=== PATIENT | male | born 2000 | race Two or more races ===

== ENCOUNTER 2024-10-14 01:30 | Emergency (ER) | payer OTHER ==
[~2024-10-14] VITALS: Ht 170.2 cm; Wt 76.0 kg
[2024-10-14 02:02] VITALS: TEMP 99.3
[2024-10-14] MEDS: LIDOCAINE 1%/EPI 1:200,000/PF 10 ML VIAL SQ ONE (03:31)
[2024-10-14] MEDS: PERTUSS(ACELL),DIPH,TET/PF 0.5 ML SYRINGE [ADULT] IM. ONE (04:02)
[2024-10-14 04:05] VITALS: BP 120/75; PULSE 80; RESP 16; O2SAT 100
== END 2024-10-14 04:08 | disposition home or self-care (01) ==
LOC: EMS 01:32
DX: S61.211A Laceration without foreign body of left index finger without damage to nail, initial encounter (principal); J45.909 Unspecified asthma, uncomplicated; W26.0XXA Contact with knife, initial encounter; Y93.89 Activity, other specified; Y92.89 Other specified places as the place of occurrence of the external cause; Y99.0 Civilian activity done for income or pay
CPT/HCPCS: 99283; 90715; 90471; 12001; J3490

== ENCOUNTER 2025-01-16 17:56 | Emergency (ER) | payer OTHER ==
[~2025-01-16] VITALS: Ht 170.2 cm; Wt 68.2 kg
[2025-01-16] MEDS ORDERED: ALBU18HF12 IH (17:59)
[2025-01-16] MEDS: IBUPROFEN 600 MG TABLET PO ONE (19:15)
[2025-01-16] MEDS: LIDOCAINE 5% TRANSDERMAL PATCH TD ONE (19:16)
[2025-01-16 19:35] VITALS: BP 127/75; TEMP 97.405232
[2025-01-16] MEDS ORDERED: LIDO-57 TP (20:43)
[2025-01-16] MEDS ORDERED: ACET-3385 PO (20:43)
[2025-01-16] MEDS ORDERED: IBUP-1492 PO (20:43)
[2025-01-16 21:50] VITALS: PULSE 70; RESP 18; O2SAT 98
== END 2025-01-16 20:45 | disposition still patient (30) ==
LOC: EMS 18:09
DX: S20.212A Contusion of left front wall of thorax, initial encounter (principal); J45.909 Unspecified asthma, uncomplicated; M25.552 Pain in left hip; F12.90 Cannabis use, unspecified, uncomplicated; Z79.899 Other long term (current) drug therapy; W10.9XXA Fall (on) (from) unspecified stairs and steps, initial encounter; Y93.89 Activity, other specified; Y92.89 Other specified places as the place of occurrence of the external cause; Y99.8 Other external cause status
CPT/HCPCS: 99284; 71101; 73503; G0238

== ENCOUNTER 2025-03-16 22:07 | Inpatient (IN) | payer MEDICAID, OTHER ==
[~2025-03-16] VITALS: Ht 162.6 cm; Wt 62.7 kg
[~2025-03-16 22:07] MED LIST: ACET-3385 PO; ALBU18HF12 IH; IBUP-1492 PO; LIDO-57 TP
[2025-03-16] MEDS: SODIUM CHLORIDE 0.9% 1,000 ML IV ONE ×2 (22:18→23:30)
[2025-03-16] MEDS: LevETIRAcetam 1,000 MG in DEXTROSE 5%-WATER 100 ML IV ONE (22:46)
[2025-03-16 22:47] LABS: PLATELET COUNT (AUTO) 243 K/uL (150-450); RED BLOOD CELL COUNT(AUTO) 5.33 MIL/uL (4.50-5.90); RED CELL DISTRIBUTION WIDTH 13.6 % (11.5-14.5); WHITE BLOOD COUNT (AUTO) 10.1 K/uL (4.5-11.0)
[2025-03-16 22:54] LABS: CALCIUM, TOTAL 8.8 mg/dL (8.8-10.5); CREATININE 1.12 mg/dL (0.60-1.30); GLOMERULAR FILTR. RATE CALC > 60 mL/min (>60); GLUCOSE,RANDOM 139 mg/dL (70-110); SODIUM SERUM 132 mmol/L (136-145); UREA NITROGEN, BLOOD 7 mg/dL (7-18)
[2025-03-16 22:56] LABS: ALCOHOL, BLOOD (SERUM) < 3 mg/dL (0-10)
[2025-03-16] MEDS ORDERED: MAGNESIUM HYDROXIDE SUSPENSION 30 ML UDCUP PO PRN (23:00)
[2025-03-16] MEDS ORDERED: LORazepam 2 MG/ML VIAL IVP PRN (23:00)
[2025-03-16] MEDS ORDERED: ACETAMINOPHEN 325 MG TABLET PO PRN (23:00)
[2025-03-16] MEDS ORDERED: ONDANSETRON HCL 4 MG/2 ML VIAL IVP PRN (23:00)
[2025-03-16 23:01] LABS: TROPONIN I-HIGH SENSITIVITY 9 ng/L (<76)
[2025-03-16 23:02] LABS: LACTIC ACID 6.5 mmol/L (0.4-2.0)
[2025-03-16 23:19] LABS: BAND NEUTROPHILS % (MANUAL) 3 % (0-5); EOSINOPHILS % (MANUAL) 3 % (1-6); LYMPHOCYTES % (MANUAL) 27 % (22-44); MONOCYTES % (MANUAL) 5 % (2-9); SEGMENTED NEUTROPHILS % 62 % (40-70)
[2025-03-17 04:16] LABS: APPEARANCE,URINE CLEAR (CLEAR); GLUCOSE, URINE (UA) NEGATIVE (NEGATIVE); LEUKOCYTE ESTERASE ,URINE TRACE (NEGATIVE); NITRATE,URINE NEGATIVE (NEGATIVE); OCCULT BLOOD,URINE NEGATIVE (NEGATIVE); PH,URINE DRUG SCREEN 6.0 (5.0-8.0); SPECIFIC GRAVITIY, URINE 1.010 (1.003-1.030)
[2025-03-17 04:20] LABS: AMPHET/METH SCREEN,URINE NEGATIVE (NEGATIVE); BARBITURATE SCREEN, URINE NEGATIVE (NEGATIVE); CANNABINOID SCREEN,URINE POSITIVE (NEGATIVE); COCAINE SCREEN,URINE NEGATIVE (NEGATIVE); METHADONE SCREEN, URINE NEGATIVE (NEGATIVE); SQUAMOUS EPITHELIAL CELL,UR Few /LPF (None Seen)
[2025-03-17 04:29] LABS: ALCOHOL, URINE DRUG SCREEN NEGATIVE (NEGATIVE)
[2025-03-17] MEDS: SODIUM CHLORIDE 0.9% 1,000 ML IV ONE (08:16)
[2025-03-17] MEDS: PANTOPRAZOLE SODIUM 40 MG/VIAL IVP SCH (08:47)
[2025-03-17 10:05] VITALS: BP 118/69; PULSE 60; RESP 16; TEMP 98.2; O2SAT 100
[2025-03-17 11:59] VITALS: BP 114/68; PULSE 54; RESP 17; TEMP 97.5; O2SAT 98
[2025-03-17 15:55] VITALS: BP 113/66; PULSE 55; RESP 19; TEMP 97.5; O2SAT 98
[2025-03-17 20:01] VITALS: BP 110/65; PULSE 59; RESP 16; TEMP 98.6; O2SAT 99
[2025-03-18 00:24] VITALS: BP 108/69; PULSE 55; RESP 16; TEMP 99.1; O2SAT 99
[2025-03-18 04:17] VITALS: BP 103/57; PULSE 50; RESP 16; TEMP 98.2; O2SAT 99
[2025-03-18 06:59] LABS: CALCIUM, TOTAL 8.4 mg/dL (8.8-10.5); CREATININE 0.65 mg/dL (0.60-1.30); GLOMERULAR FILTR. RATE CALC > 60 mL/min (>60); GLUCOSE,RANDOM 87 mg/dL (70-110); SODIUM SERUM 136 mmol/L (136-145); UREA NITROGEN, BLOOD 9 mg/dL (7-18)
[2025-03-18 07:29] LABS: PLATELET COUNT (AUTO) 217 K/uL (150-450); RED BLOOD CELL COUNT(AUTO) 4.78 MIL/uL (4.50-5.90); RED CELL DISTRIBUTION WIDTH 13.7 % (11.5-14.5); WHITE BLOOD COUNT (AUTO) 6.6 K/uL (4.5-11.0)
[2025-03-18 08:21] VITALS: BP 105/66; PULSE 58; RESP 17; TEMP 98.1; O2SAT 99
[2025-03-18] MEDS ORDERED: LEVE-71 PO (11:12)
[2025-03-18 11:40] VITALS: BP 96/62; PULSE 54; RESP 18; TEMP 98.3; O2SAT 99
[2025-03-18] MEDS ORDERED: LEVE750T35 PO (12:44)
== END 2025-03-18 13:16 | disposition home or self-care (01) | DRG 53 ==
LOC: EMS 22:07 → EDH 22:51 → 5S 03-17 10:00
PROVIDERS: ADMIT Internal Medicine; ATTEND Internal Medicine
PROC: 4A00X4Z Measurement of Central Nervous Electrical Activity, External Approach (ICD-10-PCS; principal; 2025-03-17)
DX: R56.9 Unspecified convulsions (principal); E87.1 Hypo-osmolality and hyponatremia; Z79.899 Other long term (current) drug therapy
CPT/HCPCS: 51702; 70450; 71045; 80048; 80307; 81001; 83605; 84443; 84484; 85025; 87040; 93005; 95816; 96365; 99285; G0378; G0480; J0712; J2470; J7030; J7060; 36415-L1; 36415-TC